=== PATIENT | male | born 1995 | race American Indian/Alaskan Native ===

== ENCOUNTER 2020-03-22 16:57 | Emergency (ER) | payer SELFPAY ==
[2020-03-22 17:04] VITALS: BP 140/75
--- NOTE | 2020-03-22 18:04 | Emergency Department Report ---
ED ENT HPI - General Chief complaint: Sore Throat Stated complaint: SORE THROAT Time Seen by Provider: 03/22/20 17:27 Source: patient Mode of arrival: Ambulatory Limitations: No Limitations - History of Present Illness Initial comments: Patient is a 24-year-old male presents emergency room with complaints of a sore throat that began this morning when he woke up. He states he has some mild discomfort with swallowing but is still tolerating p.o. intake and his secretions. He denies any fever, nausea, vomiting, diarrhea, shortness of breath, cough. No past medical history. No allergies to medications. - Related Data Previous Rx's Medication Instructions Recorded Last Taken Type Mag Hydrox/Aluminum Hyd/Simeth 20 ml PO QID PRN #1 oral.susp 01/04/20 Unknown Rx [Maalox Advanced Suspension] Ondansetron [Zofran Odt] 4 mg PO Q8HR PRN #10 tab.dhirajdis 01/04/20 Unknown Rx Allergies Allergy/AdvReac Type Severity Reaction Status Date / Time No Known Allergies Allergy Verified 01/04/20 09:00 ED Dental HPI - General Chief complaint: Sore Throat Stated complaint: SORE THROAT Time Seen by Provider: 03/22/20 17:27 Source: patient Mode of arrival: Ambulatory Limitations: No Limitations - Related Data Previous Rx's Medication Instructions Recorded Last Taken Type Mag Hydrox/Aluminum Hyd/Simeth 20 ml PO QID PRN #1 oral.susp 01/04/20 Unknown Rx [Maalox Advanced Suspension] Ondansetron [Zofran Odt] 4 mg PO Q8HR PRN #10 tab.rapdis 01/04/20 Unknown Rx Allergies Allergy/AdvReac Type Severity Reaction Status Date / Time No Known Allergies Allergy Verified 01/04/20 09:00 ED Review of Systems ROS: Stated complaint: SORE THROAT Other details as noted in HPI Comment: All other systems reviewed and negative ED Past Medical Hx - Past Medical History Previous Medical History?: No - Surgical History Past Surgical History?: No - Social History Smoking Status: Current Every Day Smoker Substance Use Type: None - Medications Home Medications: Home Medications Medication Instructions Recorded Confirmed Last Taken Type Mag Hydrox/Aluminum Hyd/Simeth 20 ml PO QID PRN #1 oral.susp 01/04/20 Unknown Rx [Maalox Advanced Suspension] Ondansetron [Zofran Odt] 4 mg PO Q8HR PRN #10 tab.rapdis 01/04/20 Unknown Rx ED Physical Exam - General Limitations: No Limitations General appearance: alert, in no apparent distress - Head Head exam: Present: atraumatic, normocephalic - Eye Eye exam: Present: normal appearance - ENT ENT exam: Present: mucous membranes moist, TM's normal bilaterally, normal external ear exam, other (mild posterior oropharynx erythema, no tonsillar exudates or hypertrophy, uvula is midline, no uvular edema or deviation) - Neck Neck exam: Present: full ROM. Absent: meningismus - Respiratory Respiratory exam: Present: normal lung sounds bilaterally. Absent: respiratory distress, wheezes, rales, rhonchi, stridor, chest wall tenderness, accessory muscle use, decreased breath sounds, prolonged expiratory - Cardiovascular Cardiovascular Exam: Present: regular rate, normal rhythm, normal heart sounds. Absent: systolic murmur, diastolic murmur, rubs, gallop - Neurological Exam Neurological exam: Present: alert, oriented X3 - Psychiatric Psychiatric exam: Present: normal affect, normal mood - Skin Skin exam: Present: warm, dry, intact ED Course Vital Signs 03/22/20 17:00 Temperature 99.5 F Pulse Rate 82 Respiratory 16 Rate Blood Pressure 140/75 O2 Sat by Pulse 97 Oximetry ED Medical Decision Making - Lab Data Lab Results 03/22/20 Range/Units Unknown Group A Strep Rapid Negative (Negative) - Medical Decision Making Patient is a 24-year-old male presents emergency room with complaints of a sore throat that began this morning when he woke up. He states he has some mild discomfort with swallowing but is still tolerating p.o. intake and his secretions. He denies any fever, nausea, vomiting, diarrhea, shortness of breath, cough. No past medical history. No allergies to medications. VSS. on exam: mild posterior oropharynx erythema, no tonsillar exudates or hypertrophy, uvula is midline, no uvular edema or deviation. Rapid strep is negative. Symptoms most likely related to a viral pharyngitis. Advised patient May take Tylenol or ibuprofen as needed for discomfort. Increase your water intake. May take TheraFlu [id number]-[id number]. May use jlov-yrp-reliqat throat spray or throat lozenges. Gargle with warm salt water 3-4 times a day. Follow-up with a primary care doctor for reexamination. Return to emergency room for any new or worsening symptoms. Critical care attestation.: If time is entered above; I have spent that time in minutes in the direct care of this critically ill patient, excluding procedure time. ED Disposition Clinical Impression: Viral pharyngitis Disposition: TO HOME OR SELFCARE Is pt being admited?: No Does the pt Need Aspirin: No Condition: Stable Instructions: Pharyngitis (ED) Additional Instructions: May take Tylenol or ibuprofen as needed for discomfort. Increase your water intake. May take TheraFlu [id number]-[id number]. May use pxnc-uey-sbvuxmm throat spray or throat lozenges. Gargle with warm salt water 3-4 times a day. Follow- up with a primary care doctor for reexamination. Return to emergency room for any new or worsening symptoms. Referrals: TEGAN PADILLA MD [Primary Care Provider] - 2-3 Days PATRICK RODRIGUEZ MD [Staff Physician] - 2-3 Days [facility] [Provider Group] - 2-3 Days Time of Disposition: 18:03 Print Language: MONGOLIAN
== END 2020-03-22 18:21 | disposition home or self-care (01) ==
LOC: ED 16:57
DX: J02.9 Acute pharyngitis, unspecified (principal); F17.200 Nicotine dependence, unspecified, uncomplicated; Z79.899 Other long term (current) drug therapy
CPT/HCPCS: 87116; 87430; 99283

== ENCOUNTER 2020-04-20 18:48 | Emergency (ER) | payer SELFPAY ==
[2020-04-20 19:31] VITALS: BP 138/85
--- NOTE | 2020-04-20 20:30 | Emergency Department Report ---
Chief Complaint: Urogenital-Male Stated Complaint: URINE KEENE - HPI History of Present Illness: 24-year-old -Citizen Of [place] male presents to the emergency room complaining of penile discharge 2 days. Admits to unprotected intercourse 3 weeks ago. - Exam Vital Signs: Vital Signs 04/20/20 19:23 Temperature 98.3 F Pulse Rate 111 H Respiratory 16 Rate Blood Pressure 138/85 O2 Sat by Pulse 97 Oximetry Physical Exam: Alert and oriented x3 no acute distress nontoxic in appearance Nonlabored breathing Ambulatory without difficulties. MSE screening note: Focused history and physical exam performed. Due to findings the following was ordered: 24-year-old -Citizen Of [place] male presents to the emergency room complaining of penile discharge 2 days. Admits to unprotected intercourse 3 weeks ago. ED Disposition for MSE Disposition: MED SCREENING EXAM-LEFT Is pt being admited?: No Does the pt Need Aspirin: No Condition: Stable Instructions: Safe Sex Additional Instructions: follow up with health department [facility] [Outside] - 3-5 Days [facility] [Other] - 3-5 Days
== END 2020-04-20 20:31 | disposition left against medical advice (07) ==
LOC: ED 18:48
DX: R36.9 Urethral discharge, unspecified (principal); Z53.21 Procedure and treatment not carried out due to patient leaving prior to being seen by health care provider

== ENCOUNTER 2021-12-24 03:31 | Emergency (ER) | payer SELFPAY ==
[2021-12-24] MEDS ORDERED: NORepinephrine/NS 8 MG-250 ML 8 MG/250 ML INFUS..BTL IV ONE (03:45)
[2021-12-24] MEDS ORDERED: TETANUS,DIPH,PERTUSS(ACELL) VACCINE 0.5 ML SYRINGE IM ONE (04:01)
[2021-12-24] MEDS ORDERED: SODIUM CHLORIDE 0.9% 1000 ML 1,000 ML IV ONE (04:11)
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
[2021-12-24] MEDS ORDERED: EPINEPHrine 1 MG/1 ML 8 MG in SODIUM CHLORIDE 0.9% 250ML 242 ML IV ONE (04:47)
[2021-12-24 04:53] LABS: Hematocrit 36.6 % (35.5-45.6); Hemoglobin 11.2 gm/dl (11.8-15.2); Mean Corpuscular HGB Conc 31 % (32-34); Mean Corpuscular Volume 101 fl (84-94); Platelet Count 104 K/mm3 (140-440); Red Blood Count 3.62 M/mm3 (3.65-5.03); Red Cell Distribution Width 15.5 % (13.2-15.2)
[2021-12-24 05:01] LABS: INR 1.64 (0.87-1.13)
[2021-12-24] MEDS ORDERED: ATROPINE 0.1% (1 MG/10 ML) CARDIAC SYRINGE ONE ×4 (05:02→14:31)
[2021-12-24 05:13] LABS: Alanine Aminotransferase 132 units/L (7-56); Albumin 3.1 g/dL (3.9-5); BUN/Creatinine Ratio 6; Blood Urea Nitrogen 9 mg/dL (9-20); Calcium 11.4 mg/dL (8.4-10.2); Hemolysis Index 31
--- NOTE | 2021-12-24 05:15 | XRay Report ---
XR chest 1V ap INDICATION / CLINICAL INFORMATION: post-chest tube placement. COMPARISON: Radiograph from earlier same day. FINDINGS: SUPPORT DEVICES: Right chest tube projects over the medial right hemithorax. The tube is kinked at th e side port. Other support devices are stable. HEART /PULMONARY VASCULATURE: Unchanged. LUNGS / PLEURA: Large right hemopneumothorax appears similar with collapse of the right lung. There i s persistent leftward shift of the mediastinum. Left lung is clear. Findings were discussed with Dr. Poe by phone on 12/24/2021 at 4:10 AM. Signer Name: Nav Sanchez MD Signed: 12/24/2021 5:10 AM Workstation Name: [id number]
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
[2021-12-24 05:42] LABS: Basophils % (Manual) 0 % (0.0-1.8); Total Cells Counted 100
[2021-12-24 05:43] LABS: Burr Cells Few; Platelet Estimate Consistent w Auto
[2021-12-24 07:44] VITALS: BP 75/56
[2021-12-24] MEDS ORDERED: EPINEPHrine 1 MG/10 ML SYRINGE ONE ×2 (14:29→14:31)
[2021-12-24] MEDS ORDERED: CALCIUM CHLORIDE 1,000 MG/10 ML SYRINGE IV ONE (14:29)
[2021-12-24] MEDS ORDERED: SODIUM BICARB 8.4% 50 MEQ/50 ML SYRINGE IV ONE (14:29)
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
== END 2021-12-24 09:39 ==
LOC: ED 03:31
DX: S21.101A Unspecified open wound of right front wall of thorax without penetration into thoracic cavity, initial encounter (principal); I46.9 Cardiac arrest, cause unspecified; F17.200 Nicotine dependence, unspecified, uncomplicated; Z79.899 Other long term (current) drug therapy; W34.09XA Accidental discharge from other specified firearms, initial encounter; Y93.89 Activity, other specified; Y92.89 Other specified places as the place of occurrence of the external cause; Y99.8 Other external cause status
CPT/HCPCS: 31500; 36415; 36556; 71045; 80053; 82550; 83615; 84484; 85007; 85025; 85610; 90471; 90715; 92950; 96365; 96366; 99291; 99292; J0171; J0461; J0690; J2354; J3490; J7050; 80320; 94002; G0480